=== PATIENT | female | born 1995 | race African-American/Black ===

== ENCOUNTER 2020-03-14 01:58 | Emergency (ER) | payer BC ==
[~2020-03-14] VITALS: Ht 1 cm; Wt 78.5 kg
[~2020-03-14 01:58] MED LIST: FIORICET 50-321 EACH PO; IBUPROFEN 600600 M1 PO; NOHOMEMEDICATIONS; NORCO 5-325 TA1 EACH PO; ZOFRAN ODT4 MG PO
[2020-03-14] MEDS ORDERED: NAPROSYN500 MG PO (03:28)
[2020-03-14 03:49] VITALS: BP 97/56
--- NOTE | 2020-03-14 08:30 | EKG ---
[facility] [place] [address] ELECTROCARDIOGRAM REPORT Name: KAREN CRUZ Room #: DEP [facility]#: [id number] Admission: 03/14/20 Attend Phys: Discharge: 03/14/20 Date of : [birth year] Report #: [id number] THIS REPORT FOR: cc: NO FAMILY PHYSICIAN or PCP NO FAMILY PHYSICIAN or PCP Chao Mac MD 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 03/14/20 0828 [id number] 024 Chao Mac MD, FACC /EPI
[2020-03-15] MEDS ORDERED: MIRENA1 EACH (14:30)
[2020-03-15] MEDS ORDERED: CLARITIN-D 121 EAC1 PO (16:17)
[2020-03-15] MEDS ORDERED: AFRIN15 ML NASAL (16:17)
[2020-03-15] MEDS ORDERED: PROAIR HFA8.5 GM INH (16:20)
== END 2020-03-14 03:53 | disposition home or self-care (01) ==
LOC: ER 01:58
DX: U07.1 COVID-19 (principal); R07.89 Other chest pain

== ENCOUNTER 2020-03-15 13:59 | Emergency (ER) | payer BC ==
[~2020-03-15] VITALS: Ht 165.1 cm; Wt 78.5 kg
[~2020-03-15 13:59] MED LIST changes: +NAPROSYN500 MG PO
[2020-03-15] MEDS ORDERED: MIRENA1 EACH (14:30)
[2020-03-15] MEDS ORDERED: CLARITIN-D 121 EAC1 PO (16:17)
[2020-03-15] MEDS ORDERED: AFRIN15 ML NASAL (16:17)
[2020-03-15] MEDS ORDERED: PROAIR HFA8.5 GM INH (16:20)
[2020-03-15 16:33] VITALS: BP 104/65
== END 2020-03-15 16:33 | disposition home or self-care (01) ==
LOC: ER 13:59
DX: B34.9 Viral infection, unspecified (principal); R06.00 Dyspnea, unspecified; Z20.828 Contact with and (suspected) exposure to other viral communicable diseases

== ENCOUNTER 2020-04-21 01:22 | Emergency (ER) | payer BC ==
[~2020-04-21] VITALS: Ht 165.1 cm; Wt 78.0 kg
[~2020-04-21 01:22] MED LIST changes: +AFRIN15 ML NASAL; +CLARITIN-D 121 EAC1 PO; +MIRENA1 EACH; +PROAIR HFA8.5 GM INH
[2020-04-21] MEDS ORDERED: PREDNISONE 20 M20 MG PO (02:37)
[2020-04-21 02:48] VITALS: BP 118/62
== END 2020-04-21 03:01 | disposition home or self-care (01) ==
LOC: ER 01:22
DX: U07.1 COVID-19 (principal); J45.909 Unspecified asthma, uncomplicated; Z79.899 Other long term (current) drug therapy

== ENCOUNTER 2021-03-15 21:24 | Emergency (ER) | payer OTHER ==
[~2021-03-15] VITALS: Ht 170.2 cm; Wt 69.4 kg
[~2021-03-15 21:24] MED LIST changes: +PREDNISONE 20 M20 MG PO
[2021-03-15 23:14] VITALS: BP 107/65
== END 2021-03-15 23:17 | disposition home or self-care (01) ==
LOC: ER 21:24
DX: S63.692A Other sprain of right middle finger, initial encounter (principal); J45.909 Unspecified asthma, uncomplicated; V49.88XA Car occupant (driver) (passenger) injured in other specified transport accidents, initial encounter; Y93.89 Activity, other specified; Y92.413 State road as the place of occurrence of the external cause; Y99.9 Unspecified external cause status